=== PATIENT | female | born 1995 | race Caucasian/White ===

== ENCOUNTER → 2017-06-23 | Outpatient (CLI) | payer BC | END | disposition home or self-care (01) | LOC: C.PATHSPEC 15:59 → C.LABSPEC 06-26 15:58 | PROVIDERS: ATTEND Physician Assistant | DX: D18.01 Hemangioma of skin and subcutaneous tissue (principal) ==

== ENCOUNTER 2017-07-19 20:50 | Emergency (ER) | payer BC ==
[~2017-07-19] VITALS: Ht 157.5 cm; Wt 56.8 kg
[2017-07-19 20:53] VITALS: TEMP 36.7; Ht 157.5 cm; Wt 56.8 kg
--- NOTE | 2017-07-19 21:21 | EMERGENCY ROOM VISIT NOTE ---
History Report prepared by Eva: Aruna Dawkins Under the Supervision of: Dr. Srinivasa Celestin M.D. 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 She reports indoor rock climbing without a harness when she fell 10 feet onto a mat and landed on both of her feet. She notes she felt and heard a crunching sound. She notes pain in her lumbar spine. She currently rates her pain a 6/10 in severity. She denies getting back up from the fall. She denies any head injuries , shortness of breath, chest pain, neck pain, clavicle pain, shoulder pain, abdominal pain, rib pain, weakness, numbness, leg pain, or . She denies any underlying medical problems. Source of History: patient, friend Onset: 30 minutes SENIOR CONTROLS TECHNICIAN Position: other (global) Symptom Intensity: 6/10 Quality: other (fall 10 feet) Timing: other (episodic) Associated Symptoms: + back pain (lumbar region), No chest pain, No SOB, No abdominal pain, No weakness, No numbness Note: She denies any head injuries, neck pain, clavicle pain, shoulder pain, rib pain , leg pain or . Review of Systems See HPI for pertinent positives & negatives. A total of 10 systems reviewed and were otherwise negative. Past Medical & Surgical Old medical records were attempted to be reviewed but there are no old records at this hospital. Nurse's notes were reviewed and I agree with. No other pertinent PMHx or PSHx reported. Family History No pertinent family history obtained. Social History Smoking Status: Never Smoker Smokeless Tobacco Use: No Alcohol Use: none Drug Use: none Marital Status: single Housing Status: lives with roommate Occupation Status: student Current/Historical Medications Scheduled Control Pills ( Control Pills), 1 TAB PO DAILY Scheduled PRN Oxycodone Immediate Rel Tab (Roxicodone Ir), 1-2 TAB PO Q4H PRN for Severe Pain Allergies Coded Allergies: No Known Allergies (Unverified , 07/19/17) Physical Exam Vital Signs Date Time Temp Pulse Resp B/P (MAP) Pulse Ox O2 Delivery O2 Flow Rate FiO2 07/19/17 23:57 60 16 112/74 99 Room Air 07/19/17 22:35 72 16 99 07/19/17 22:30 108/63 07/19/17 22:23 115/75 07/19/17 21:50 75 14 97 07/19/17 21:35 90 11 100 07/19/17 21:20 78 21 100 07/19/17 21:05 84 26 99 07/19/17 21:03 81 07/19/17 21:00 128/81 07/19/17 20:53 36.7 79 16 136/82 100 Room Air Physical Exam General: Well developed well nourished young female who in no acute distress, breathing comfortably on room air. Normal speech. Glascow coma score of 15. Boarded and collared, non-ill appearing young female. HEENT: Normal cephalic atraumatic. Pupils are equal round and reactive to light. Extraocular movements are intact. Oropharynx is pink with moist mucous membranes. No swelling of the mouth lips or tongue. No hyphema. No blood from the nose or septal hematoma. Mid face is stable. No dental trauma or malocclusion. Neck: Collared with a midline trachea. No meningeal signs or stiffness. No midline tenderness. No Stridor. Chest: Clear to auscultation bilaterally. No wheezes or rhonchi. No increased work of breathing. No rib or sternal tenderness. No subcutaneous air. No external signs of trauma. Heart: Regular rate and rhythm without murmurs or gallops. Abdomen: Soft nontender, nondistended without rebound guarding or rigidity. No external signs of trauma Extremities: No cyanosis clubbing or edema. No calf tenderness or asymmetry. Spine/Back. Non tender to palpation. No CVA tenderness.Spine and back is tender in lower central lumbar region. Skin: Good turgor without rashes. Neurologic exam: Cranial nerves two through 12 are intact. Motor and sensation are intact and symmetrical throughout. Normal level of consciousness Medical Decision & Procedures ER Provider Diagnostic Interpretation: Radiology results as stated below per my review and radiologist interpretation: CT SCAN OF THE CHEST, ABDOMEN, AND PELVIS WITH IV CONTRAST CLINICAL HISTORY: Fall. COMPARISON STUDY: No priors. TECHNIQUE: Following the IV administration of 94 of Optiray 320, CT scan of the chest, abdomen, and pelvis was performed from the thoracic inlet to the proximal femora. Images are reviewed in the axial, sagittal, and coronal planes. IV contrast was administered without complication. Automated dose control exposure was utilized. A dose lowering technique was utilized adhering to the principles of ALARA. CT DOSE: 509.69 mGy.cm FINDINGS: CHEST: Thyroid: Imaged portions of the thyroid gland are normal in size and attenuation. Thoracic aorta: The thoracic aorta is normal in caliber and demonstrates standard 3-vessel arch anatomy. No dissection is seen. Pulmonary vasculature: The pulmonary trunk is normal in caliber. There are no filling defects identified in the central pulmonary vessels to indicate pulmonary embolus. Note that this examination was not protocoled for evaluation of the pulmonary arteries. Heart: The heart is normal in size and configuration, and without pericardial effusion. Lungs and pleural spaces: The lungs and pleural spaces are clear. There is no pneumothorax. The trachea and central airways are patent. Mediastinum: There is no mediastinal hematoma or lymphadenopathy. Ashleigh: Clear. Axillae: There is no axillary lymphadenopathy. Bony thorax: The bony thorax appears intact. No lytic or blastic lesions are identified. ABDOMEN AND PELVIS: Liver: The contrast-enhanced liver is normal in size, contour, and attenuation. There is no intrahepatic or ductal dilatation. The hepatic veins and portal veins are patent. Gallbladder: Unremarkable. Spleen: Normal in size and attenuation. Pancreas: Unremarkable. Adrenal glands: Unremarkable. Kidneys: The contrast enhanced kidneys are normal in size and without hydronephrosis. The kidneys enhance symmetrically. There is a 3 mm nonobstructing calculus in the left upper pole. Abdominal vasculature: The abdominal aorta is normal in course and caliber. Bowel: There is mild colonic fecal retention. No bowel obstruction is seen. The appendix is well-visualized and normal. Peritoneum: There is no intraperitoneal free air or abdominal ascites. Lymphadenopathy: There are shotty mesenteric lymph nodes. These are not pathologically enlarged by size criteria. Pelvic viscera: The bladder, uterus, and adnexa are normal as visualized. An 8 mm cystic structure inferior to the bladder may represent a tiny urethral diverticulum. Skeletal structures: There is a minimal acute superior endplate compression fracture of L1. There is minimal paravertebral edema. No retropulsed fragments are seen. Vertebral body height is otherwise maintained at the lumbar spine. The bony pelvis appears intact. No lytic or blastic lesions are seen. IMPRESSION: 1. There is no acute posttraumatic intrathoracic abnormality. 2. The lungs are clear. No pneumothorax is seen. 3. There is a minimal acute superior endplate compression fracture of L1. No retropulsed fragments are identified. 4. No additional acute fracture is identified. 5. There is no evidence of solid organ injury in the abdomen or pelvis. 6. Suspect a small urethral diverticulum. 7. Nonobstructing left renal calculus. 8. Additional findings as above. Electronically signed by: Kem Gupta M.D. 07/19/2017 10:36 PM Dictated Date/Time: 07/19/2017 10:[address] SCAN OF THE CHEST, ABDOMEN, AND PELVIS WITH IV CONTRAST CLINICAL HISTORY: Fall. COMPARISON STUDY: No priors. TECHNIQUE: Following the IV administration of 94 of Optiray 320, CT scan of the chest, abdomen, and pelvis was performed from the thoracic inlet to the proximal femora. Images are reviewed in the axial, sagittal, and coronal planes. IV contrast was administered without complication. Automated dose control exposure was utilized. A dose lowering technique was utilized adhering to the principles of ALARA. CT DOSE: 509.69 mGy.cm FINDINGS: CHEST: Thyroid: Imaged portions of the thyroid gland are normal in size and attenuation. Thoracic aorta: The thoracic aorta is normal in caliber and demonstrates standard 3-vessel arch anatomy. No dissection is seen. Pulmonary vasculature: The pulmonary trunk is normal in caliber. There are no filling defects identified in the central pulmonary vessels to indicate pulmonary embolus. Note that this examination was not protocoled for evaluation of the pulmonary arteries. Heart: The heart is normal in size and configuration, and without pericardial effusion. Lungs and pleural spaces: The lungs and pleural spaces are clear. There is no pneumothorax. The trachea and central airways are patent. Mediastinum: There is no mediastinal hematoma or lymphadenopathy. Ashleigh: Clear. Axillae: There is no axillary lymphadenopathy. Bony thorax: The bony thorax appears intact. No lytic or blastic lesions are identified. ABDOMEN AND PELVIS: Liver: The contrast-enhanced liver is normal in size, contour, and attenuation. There is no intrahepatic or ductal dilatation. The hepatic veins and portal veins are patent. Gallbladder: Unremarkable. Spleen: Normal in size and attenuation. Pancreas: Unremarkable. Adrenal glands: Unremarkable. Kidneys: The contrast enhanced kidneys are normal in size and without hydronephrosis. The kidneys enhance symmetrically. There is a 3 mm nonobstructing calculus in the left upper pole. Abdominal vasculature: The abdominal aorta is normal in course and caliber. Bowel: There is mild colonic fecal retention. No bowel obstruction is seen. The appendix is well-visualized and normal. Peritoneum: There is no intraperitoneal free air or abdominal ascites. Lymphadenopathy: There are shotty mesenteric lymph nodes. These are not pathologically enlarged by size criteria. Pelvic viscera: The bladder, uterus, and adnexa are normal as visualized. An 8 mm cystic structure inferior to the bladder may represent a tiny urethral diverticulum. Skeletal structures: There is a minimal acute superior endplate compression fracture of L1. There is minimal paravertebral edema. No retropulsed fragments are seen. Vertebral body height is otherwise maintained at the lumbar spine. The bony pelvis appears intact. No lytic or blastic lesions are seen. IMPRESSION: 1. There is no acute posttraumatic intrathoracic abnormality. 2. The lungs are clear. No pneumothorax is seen. 3. There is a minimal acute superior endplate compression fracture of L1. No retropulsed fragments are identified. 4. No additional acute fracture is identified. 5. There is no evidence of solid organ injury in the abdomen or pelvis. 6. Suspect a small urethral diverticulum. 7. Nonobstructing left renal calculus. 8. Additional findings as above. Electronically signed by: Kem Gupta M.D. 07/19/2017 10:36 PM Dictated Date/Time: 07/19/2017 10:[address] SCAN OF THE LUMBAR SPINE WITHOUT IV CONTRAST CLINICAL HISTORY: Trauma. Fall with back pain. COMPARISON STUDY: CT scan of the abdomen performed concurrently on 07/19/2017. TECHNIQUE: CT scan of the lumbar spine is performed from the lower thoracic spine to the sacrum. Images are reviewed in the axial, sagittal, and coronal planes. IV contrast was not administered specifically for this examination. There is IV contrast present from the concurrently performed CT scan of the abdomen pelvis. A dose lowering technique was utilized adhering to the principles of ALARA. FINDINGS: The skeletal structures are well mineralized. There is a minimal acute superior endplate compression fracture of L1 with mild associated paravertebral edema. No retropulsed fragment is seen. No additional fracture is identified involving the lumbar spine. Vertebral body height is otherwise maintained. Alignment is preserved. The transverse and spinous processes are intact. There is no evidence of spondylolysis. No lytic or blastic lesion is seen. 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 The disc spaces are preserved. There is no evidence of large disc herniation. The central canal is clear as visualized. The imaged sacrum and bony pelvis are intact. The paraspinous musculature is normal in appearance. The lung bases are clear as visualized. A small nonobstructing calculus is seen in the left kidney. The partially imaged retroperitoneal structures are otherwise grossly unremarkable but incomplete assessed. IMPRESSION: 1. There is a minimal acute superior endplate compression fracture of L1. No retropulsed fragments are seen. 2. No additional fracture is seen in the lumbar spine. Electronically signed by: Kem Gupta M.D. 07/19/2017 10:43 PM Dictated Date/Time: 07/19/2017 10:39 PM Laboratory Results Test 07/19/17 21:54 Bedside Hemoglobin 13.6 g/dl (12.0-16.0) Bedside Hematocrit 40 % (37-47) Bedside Sodium 140 mEq/L (135-144) Bedside Potassium 3.7 mEq/L (3.3-5.0) Bedside Chloride 105 mEq/L (101-112) Bedside Total CO2 24 mEq/l (24-31) Anion Gap 17.0 mmol/L (16-25) Bedside Blood Urea Nitrogen 5 mg/dl (7-18) Bedside Creatinine 0.5 mg/dl Bedside Glucose (other) 95 mg/dl (70-99) Bedside Ionized Calcium (Petra) 1.22 mmol/l Laboratory studies as stated above per my review. Medications Administered Medications (Trade) Dose Ordered Sig/Kirit Route Start Time Stop Time Status Last Admin Dose Admin Miscellaneous Information (Patient'S Allergy Info Needs Entered) 1 ea NOW STAT N/A 07/19/17 21:36 07/19/17 21:37 DC 07/19/17 21:36 1 EA Oxycodone HCl (Roxicodone Immediate Rel 5MG Home Pack) 1 homepack UD ONCE PO 07/19/17 23:45 07/19/17 23:46 DC 07/20/17 00:00 1 HOMEPACK ED Course 5: Past medical records reviewed. The patient was evaluated in room A2, and a complete history and physical examination were performed. 4727: I spoke with Dr. Landeros, orthopedic surgeon. We discussed the patients case. He will follow up with the patient tomorrow. 2317: I reassessed the patient at this time. She does not have any new complaints and she is feeling better and resting comfortably. I discussed the results and treatment plan with the patient. I answered all pertaining questions that she had. She expressed understanding and verbalized agreement. The patient will be discharged home. 2345: Ordered Oxycodone HCl 1 homepack Medical Decision Differentials include, but are not limited to; lumbar fracture, orthopedic injuries, internal injuries, and neurological injuries. This patient comes in as described above she comes in after falling about 10 feet and landing on her feet with an axial load type mechanism. She has lumbar back pain. She denies any other injuries. She specifically, she did not hit her head and denies any neck pain. She has no neurologic deficits or complaints. IV access established and I did a CAT scan of her chest, abdomen/ pelvis, and lumbar spine. CAT scans show a mild compression fracture of L1 without retropulsion. There are no other other acute findings seen I did remove the cervical collar. She has no tenderness or complaints and I do not think we need to image her neck and there was no reported trauma. She is feeling much better and would like to go home. I discussed the case with who felt she can follow-up with him in the office. The patient should use ibuprofen for pain and for breakthrough pain, she can use OxyIR 5 mg , 1 pill every 4-6 hours as needed .she was warned that this could make her drowsy and do not take before drinking, driving, working and ensure that she takes stool softener so she is not constipated . she should've close follow-up with Dr. Landeros in the next 1-2 days and return to ER if: increasing pain, worsening of symptoms, numbness or weakness, any new problems or concerns. She was happy the plan and discharged to home. Medication Reconcilliation Current Medication List: was personally reviewed by me Blood Pressure Screening Patient's blood pressure: Normal blood pressure Consults Time Called: 2232 Consulting Physician: Dr. Landeros, orthopedic surgeon Returned Call: [phone] Landeros, orthopedic surgeon. We discussed the patients case. He will follow up with the patient tomorrow. Impression Primary Impression: L1 vertebral fracture Scribe Attestation The scribe's documentation has been prepared under my direction and personally reviewed by me in its entirety. I confirm that the note above accurately reflects all work, treatment, procedures, and medical decision making performed by me. Departure Information Dispostion Home / Self-Care Prescriptions Oxycodone Immediate Rel Tab (ROXICODONE IR) 5 Mg Tab 1-2 TAB PO Q4H Y for Severe Pain, #24 TAB Prov: Srinivasa Celestin M.D. 07/19/17 Referrals No Doctor, Assigned (PCP) Forms HOME CARE DOCUMENTATION FORM, IMPORTANT VISIT INFORMATION Patient Instructions My [facility] Additional Instructions Rest REturn if: worsening of symptoms, numbness or weakness, increasing pain, any new problems or concerns Use ibuprofen 400 mg every 6 hours, take with food For more severe pain, use OxyIR 5 mg, 1 pill every 4-6 hours as needed OxyIR may make you drowsy and do not take before drinking, driving, working If you take OxyIR also take a stool softener as it may constipate you Follow-up with Dr. Landeros. In the next 1-2 days for recheck. Call the office tomorrow
[2017-07-19] MEDS ORDERED: OPTIRAY 320 IV PRN (21:30)
[2017-07-19] MEDS ORDERED: PATIENT'S ALLERGY INFO NEEDS ENTERED STA (21:36)
[2017-07-19 22:09] LABS: ISTAT CREATININE 0.5 mg/dl; ISTAT HEMOGLOBIN 13.6 g/dl (12.0-16.0); ISTAT IONIZED CALCIUM 1.22 mmol/l
--- NOTE | 2017-07-19 22:38 | DIAGNOSTIC IMAGING REPORT ---
CT SCAN OF THE CHEST, ABDOMEN, AND PELVIS WITH IV CONTRAST CLINICAL HISTORY: Fall. COMPARISON STUDY: No priors. TECHNIQUE: Following the IV administration of 94 of Optiray 320, CT scan of the chest, abdomen, and pelvis was performed from the thoracic inlet to the proximal femora. Images are reviewed in the axial, sagittal, and coronal planes. IV contrast was administered without complication. Automated dose control exposure was utilized. A dose lowering technique was utilized adhering to the principles of ALARA. CT DOSE: 509.69 mGy.cm FINDINGS: CHEST: Thyroid: Imaged portions of the thyroid gland are normal in size and attenuation. Thoracic aorta: The thoracic aorta is normal in caliber and demonstrates standard 3-vessel arch anatomy. No dissection is seen. Pulmonary vasculature: The pulmonary trunk is normal in caliber. There are no filling defects identified in the central pulmonary vessels to indicate pulmonary embolus. Note that this examination was not protocoled for evaluation of the pulmonary arteries. Heart: The heart is normal in size and configuration, and without pericardial effusion. Lungs and pleural spaces: The lungs and pleural spaces are clear. There is no pneumothorax. The trachea and central airways are patent. Mediastinum: There is no mediastinal hematoma or lymphadenopathy. Ashleigh: Clear. Axillae: There is no axillary lymphadenopathy. Bony thorax: The bony thorax appears intact. No lytic or blastic lesions are identified. ABDOMEN AND PELVIS: Liver: The contrast-enhanced liver is normal in size, contour, and attenuation. There is no intrahepatic or ductal dilatation. The hepatic veins and portal veins are patent. Gallbladder: Unremarkable. Spleen: Normal in size and attenuation. Pancreas: Unremarkable. Adrenal glands: Unremarkable. Kidneys: The contrast enhanced kidneys are normal in size and without hydronephrosis. The kidneys enhance symmetrically. There is a 3 mm nonobstructing calculus in the left upper pole. Abdominal vasculature: The abdominal aorta is normal in course and caliber. Bowel: There is mild colonic fecal retention. No bowel obstruction is seen. The appendix is well-visualized and normal. Peritoneum: There is no intraperitoneal free air or abdominal ascites. Lymphadenopathy: There are shotty mesenteric lymph nodes. These are not pathologically enlarged by size criteria. Pelvic viscera: The bladder, uterus, and adnexa are normal as visualized. An 8 mm cystic structure inferior to the bladder may represent a tiny urethral diverticulum. Skeletal structures: There is a minimal acute superior endplate compression fracture of L1. There is minimal paravertebral edema. No retropulsed fragments are seen. Vertebral body height is otherwise maintained at the lumbar spine. The bony pelvis appears intact. No lytic or blastic lesions are seen. IMPRESSION: 1. There is no acute posttraumatic intrathoracic abnormality. 2. The lungs are clear. No pneumothorax is seen. 3. There is a minimal acute superior endplate compression fracture of L1. No retropulsed fragments are identified. 4. No additional acute fracture is identified. 5. There is no evidence of solid organ injury in the abdomen or pelvis. 6. Suspect a small urethral diverticulum. 7. Nonobstructing left renal calculus. 8. Additional findings as above. Electronically signed by: Kem Gupta M.D. 07/19/2017 10:36 PM Dictated Date/Time: 07/19/2017 10:19 PM
--- NOTE | 2017-07-19 22:44 | DIAGNOSTIC IMAGING REPORT ---
CT SCAN OF THE LUMBAR SPINE WITHOUT IV CONTRAST CLINICAL HISTORY: Trauma. Fall with back pain. COMPARISON STUDY: CT scan of the abdomen performed concurrently on 07/19/2017. TECHNIQUE: CT scan of the lumbar spine is performed from the lower thoracic spine to the sacrum. Images are reviewed in the axial, sagittal, and coronal planes. IV contrast was not administered specifically for this examination. There is IV contrast present from the concurrently performed CT scan of the abdomen pelvis. A dose lowering technique was utilized adhering to the principles of ALARA. FINDINGS: The skeletal structures are well mineralized. There is a minimal acute superior endplate compression fracture of L1 with mild associated paravertebral edema. No retropulsed fragment is seen. No additional fracture is identified involving the lumbar spine. Vertebral body height is otherwise maintained. Alignment is preserved. The transverse and spinous processes are intact. There is no evidence of spondylolysis. No lytic or blastic lesion is seen. 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 The disc spaces are preserved. There is no evidence of large disc herniation. The central canal is clear as visualized. The imaged sacrum and bony pelvis are intact. The paraspinous musculature is normal in appearance. The lung bases are clear as visualized. A small nonobstructing calculus is seen in the left kidney. The partially imaged retroperitoneal structures are otherwise grossly unremarkable but incomplete assessed. IMPRESSION: 1. There is a minimal acute superior endplate compression fracture of L1. No retropulsed fragments are seen. 2. No additional fracture is seen in the lumbar spine. Electronically signed by: Kem Gupta M.D. 07/19/2017 10:43 PM Dictated Date/Time: 07/19/2017 10:39 PM
[2017-07-19] MEDS ORDERED: BCPILLS PO (22:51)
[2017-07-19] MEDS ORDERED: OXYC1TAB3 PO (23:37)
[2017-07-19] MEDS ORDERED: OXYCODONE IR HOME PACK PO ONE (23:45)
[2017-07-19 23:57] VITALS: BP 112/74; PULSE 60; O2SAT 99
== END 2017-07-20 00:08 | disposition home or self-care (01) ==
LOC: EDBD 20:50 → C.EDA 20:50
DX: S32.019A Unspecified fracture of first lumbar vertebra, initial encounter for closed fracture (principal); W19.XXXA Unspecified fall, initial encounter